=== PATIENT | male | born 1965 | race Caucasian/White ===

== ENCOUNTER → 2018-07-08 | Outpatient (CLI) | payer OTHER ==
[~2018-07-08] MED LIST: ACYC800 PO; ADDERAL; ALBIPROI; ALBU90OI; ALBU90OI61 INH; AMPDEX10; AMPDEX10 PO; Bactrim Ds Tab1 EACH PO; CLON.1 PO; CLON1; FLUSAL2505 IH; FLUSAL5005 IH; IBUP800 PO; LISHYD1012 PO; LISI5; LISI5 PO; LORA1; LORA1 PO; METH40 PO; Norco 5-325 Ta1 EACH PO; OXYACE10; OXYACE5T PO; OXYC15ER PO; OXYC20ER; OXYC30ER PO; POLTRIOPSO OS; PROACE100; PROM25 PO; RXOXYACE PO; SALMOI6.5; SPIRIVA; TIOT18 IH; WATER PILL?
== END | disposition home or self-care (01) ==
LOC: LAB SHORT 18:05 → LAB EV 18:05
DX: S51.801A Unspecified open wound of right forearm, initial encounter (principal)
CPT/HCPCS: 87070; 87075; 87077; 87147; 87186; 87205

== ENCOUNTER 2019-08-28 23:12 | Emergency (ER) | payer OTHER ==
[~2019-08-28] VITALS: Ht 165.1 cm; Wt 63.5 kg
== END 2019-08-29 02:30 | disposition left against medical advice (07) ==
LOC: ER 23:12
DX: Z53.21 Procedure and treatment not carried out due to patient leaving prior to being seen by health care provider (principal)